=== PATIENT | female | born 1975 | race Caucasian/White ===

== ENCOUNTER 2022-04-13 20:50 | Emergency (ER) | payer OTHER ==
[2022-04-13] MEDS ORDERED: Prochlorperazine 10 MG/2 ML SDV IVPUSH ONE (21:36)
[2022-04-13] MEDS ORDERED: Sodium Chloride 0.9% 10 ML Syringe FLUSH PRN (21:36)
[2022-04-13] MEDS ORDERED: Sodium Chloride 0.9% 1,000 ML IV SCH ×2 (21:45→23:15)
[2022-04-13] MEDS ORDERED: Pantoprazole 40 MG Vial IVPUSH ONE (21:58)
[2022-04-13 22:24] LABS: ESTIMATED GFR 60 (>60)
[2022-04-14] MEDS ORDERED: Metoclopramide 10 MG/2 ML SDV IVPUSH ONE (01:52)
[2022-04-14] MEDS ORDERED: 50% Dextrose in Water 50 ML Syringe IVPUSH ONE (01:52)
[2022-04-14] MEDS ORDERED: Sodium Chloride 0.9% 1,000 ML IV SCH (04:30)
== END 2022-04-14 06:59 | disposition home or self-care (01) ==
LOC: JP.ED 20:50
DX: E86.0 Dehydration (principal); R11.2 Nausea with vomiting, unspecified; T50.905A Adverse effect of unspecified drugs, medicaments and biological substances, initial encounter; K21.9 Gastro-esophageal reflux disease without esophagitis; Z79.899 Other long term (current) drug therapy; Z91.048 Other nonmedicinal substance allergy status
CPT/HCPCS: 36415; 80053; 82947; 83690; 85025; 96361; 96374; 96375; 99283; 99284; C9113; J0780; J2765; J3490; J7030